=== PATIENT | male | born 1980 | race African-American/Black ===

== ENCOUNTER 2017-02-15 14:57 | Emergency (ER) | payer OTHER ==
[~2017-02-15] VITALS: Ht 180.3 cm; Wt 79.4 kg
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
[2017-02-15] MEDS ORDERED: IBUPROFEN 600 MG TABLET. PO ONE (16:00)
[2017-02-15] MEDS ORDERED: LIDOCAINE 1% / SOD BICARB 8.4% 20 ML VIAL. IJ ONE (16:00)
[2017-02-15] MEDS ORDERED: HYDROcodone/APAP 5/325MG 1 TAB TABLET PO ONE (16:00)
[2017-02-15 16:59] VITALS: BP 125/63
--- NOTE | 2017-02-16 08:04 | RAD ---
Indication: Injury to the thumb playing basketball. 3 views of the left thumb demonstrate a dislocation at the interphalangeal joint. The distal phalanx appears to be dislocated dorsally. No fracture is seen. Remaining phalanges are intact. Impression: Interphalangeal joint dislocation of the thumb, as described.
--- NOTE | 2017-02-16 08:05 | RAD ---
Indication: Thumb dislocation. The study is performed post reduction. Time of exam 1625 hours. 3 views of the left thumb demonstrate interval reduction of the dislocation at the interphalangeal joint. Alignment is now anatomic. No fractures are seen. Impression: Satisfactory reduction of the interphalangeal joint dislocation when compared with exam earlier the same day.
== END 2017-02-15 17:02 | disposition home or self-care (01) ==
LOC: ER 14:57
DX: S63.145A Dislocation of distal interphalangeal joint of left thumb, initial encounter (principal); K50.90 Crohn's disease, unspecified, without complications; X58.XXXA Exposure to other specified factors, initial encounter; Y93.67 Activity, basketball; Y92.89 Other specified places as the place of occurrence of the external cause; Y99.8 Other external cause status
CPT/HCPCS: 26770; 73130; 73140; 99284-25